=== PATIENT | male | born 1980 | race Caucasian/White ===

== ENCOUNTER 2020-02-25 23:37 | Observation (INO) ==
[2020-02-26] MEDS ORDERED: SODIUM CHLORIDE 0.9% 500 ML IV STA (00:16)
[2020-02-26 01:17] LABS: Apearance,Urine CLEAR (Clear); Bilirubin,Urine Negative (Negative); Blood, Urine Negative (Negative); Glucose,Urine (UA) Negative (Negative); Ketones,Urine Negative (Negative); Nitrite,Urine Negative (Negative); Protein,Urine Negative; RBC,Urine <1 /HPF (0-4); Urine Color Colorless (Yellow); Urine Specific Gravity 1.002 (1.001-1.035); Urine Urobilinogen < 2.0 EU/DL (0.2-1.0); WBC,Urine <1 /HPF (0-6)
[2020-02-26 01:20] LABS: Barbiturates Screen,Urine Negative (Negative); Benzodiazepines Screen,Urine Negative (Negative); Cannabinoid Screen,Urine Negative (Negative); Opiate Screen,Urine Negative (Negative); Phencyclidine Screen,Urine Negative (Negative)
[2020-02-26 01:24] LABS: Basophils # 0.1 10*3/uL (0.0-0.2); Basophils % 0.6 % (0.0-0.8); Eosinophils # 0.6 10*3/uL (0.0-0.87); Eosinophils % 5.9 % (0.00-10.9); Hematocrit 47.5 VOL% (42.0-52.0); Hemoglobin 16.4 GM/DL (14.0-18.0); Immature Granulocytes % 0.9 %; Immature Granulocytes Absolute 0.08 #; Lymphocytes # 3.4 10*3/uL (1.4-4.0); Lymphocytes % 35.7 % (21.2-54.2); Mean Corpuscular HGB Conc 34.5 GM/DL (32-36); Mean Corpuscular Volume 93.3 FL (87-102); Mean Platelet Volume 10.5 FL (9.6-12.0); Monocytes % 7.2 % (1.7-12.7); Neutrophils % 49.7 % (38.7-73.9); Platelet Count 190 T/CUMM (130-400); Red Blood Count 5.09 MC/CUMM (3.8-5.5); Red Cell Distribution Width 12.9 % (9.3-17.3); White Blood Count 9.4 T/CUMM (4-12)
[2020-02-26 01:38] LABS: INR 0.9; PT Patient Result 10.2 SECS (9.8-11.9)
[2020-02-26 01:57] LABS: Acetaminophen < 2.0 UG/ML (10-30); Salicylate < 2.8 MG/DL (2.8-20)
[2020-02-26 02:06] LABS: Alanine Aminotransferase 21 U/L (16-61); Albumin 3.7 G/DL (3.4-5.0); Alkaline Phosphatase 63 U/L (45-117); Aspartate Amino Transferase 11 U/L (0-37); Bilirubin,Total < 0.39 MG/DL (0.2-1.0); Blood Urea Nitrogen 10 MG/DL (7-18); Calcium 8.6 MG/DL (8.5-10.1); Estimated Glom Filtration Rate 87 ML/MIN; Glucose 88 MG/DL (74-106); Osmolality,Calculated 276.4 MOS/KG (273-304); Troponin I < 0.015 NG/ML (0.00-0.045)
[2020-02-26 02:30] LABS: Sedimentation Rate-Westergren 0 MM/HR (0-15)
[2020-02-26] MEDS ORDERED: ONDANSETRON 4 MG/2 ML VIAL IV PRN (04:15)
[2020-02-26] MEDS ORDERED: GLUCAGON 1 MG VIAL IM PRN (04:15)
[2020-02-26] MEDS ORDERED: DEXTROSE 50% 25 GM/50 ML VIAL IV PRN (04:15)
[2020-02-26] MEDS ORDERED: diphenhydrAMINE CAP 25 MG CAPSULE PO PRN (04:15)
[2020-02-26] MEDS ORDERED: NICOTINE 21 MG/24 HR PATCH TRANSDERM PRN (04:15)
[2020-02-26] MEDS ORDERED: hydrALAZINE 20 MG/1 ML VIAL IV PRN (04:15)
[2020-02-26] MEDS ORDERED: ACETAMINOPHEN 325 MG TABLET PO PRN (04:15)
[2020-02-26 04:46] LABS: Platelet Estimate Normal
[2020-02-26] MEDS ORDERED: THIAMINE INJ 100 MG, FOLIC ACID INJ 1 MG, MULTIVITAMIN INJ 10 ML in SODIUM CHLORIDE 0.9... IV SCH (05:00)
[2020-02-26] MEDS ORDERED: ASPIRIN 325 MG TABLET PO SCH (09:00)
[2020-02-26 16:36] VITALS: BP 132/72
== END 2020-02-26 17:30 | disposition home or self-care (01) ==
LOC: EDBD → EDUNIT# → N.EDINP 23:37 → N.ED 23:37 → N.3E 02-26 05:02
PROVIDERS: ADMIT Internal Medicine Geriatric Medicine; ATTEND Internal Medicine Geriatric Medicine